=== PATIENT | female | born 1990 | race Hispanic/Latino ===

== ENCOUNTER 2018-09-11 21:34 | Emergency (ER) | payer BC ==
[2018-09-11] MEDS ORDERED: Sodium Chloride 0.9% 1,000 ML IV STA (23:31)
--- NOTE | 2018-09-11 23:35 | ED PDOC ---
HPI: General Adult Time Seen by Provider: 09/11/18 23:18 Chief Complaint (Nursing): GI Problem Chief Complaint (Provider): throat pain History Per: Patient History/Exam Limitations: no limitations Onset/Duration Of Symptoms: Days (2) Current Symptoms Are (Timing): Still Present Additional Complaint(s): 27 y/o female presents for evaluation of throat pain x 2 days. Associated right-sided neck pain/swelling, worsened today. Patient also reports 3-4 episodes of vomiting and diarrhea today. Had URI symptoms all last week. Denies fever, headache, dizziness, congestion, cough, shortness of breath, difficulty swallowing, chest pain, palpitations, abdominal pain,urinary symptoms, recent travel, sick contacts. Patient was evaluated by her primary doctor today and given antibiotics but she did not start them yet. Past Medical History Reviewed: Historical Data, Nursing Documentation, Vital Signs Vital Signs: Last Vital Signs Temp 97.6 F 09/11/18 22:05 Pulse 76 09/11/18 22:05 Resp 18 09/11/18 22:05 BP 119/81 09/11/18 22:05 Pulse Ox 100 09/11/18 22:05 - Medical History PMH: No Chronic Diseases - Surgical History Surgical History: Tonsillectomy Other surgeries: glaucoma - Family History Family History: States: No Known Family Hx - Living Arrangements Living Arrangements: With Family - Home Medications Home Medications: Ambulatory Orders Medication Instructions Recorded Ibuprofen [Motrin Tab] 1 tab PO Q6 PRN #20 tab 09/12/18 Ondansetron ODT [Zofran ODT] 4 mg PO Q8 PRN #10 odt 09/12/18 - Allergies Allergies/Adverse Reactions: Allergies Allergy/AdvReac Type Severity Reaction Status Date / Time No Known Allergies Allergy Verified 09/11/18 22:05 Review of Systems ROS Statement: Except As Marked, All Systems Reviewed And Found Negative ENT: Positive for: Throat Pain Gastrointestinal: Positive for: Nausea, Vomiting, Diarrhea Physical Exam - Reviewed Nursing Documentation Reviewed: Yes Vital Signs Reviewed: Yes - Physical Exam Appears: Positive for: Well, Non-toxic, No Acute Distress Head Exam: Positive for: ATRAUMATIC, NORMAL INSPECTION, NORMOCEPHALIC Skin: Positive for: Normal Color Eye Exam: Positive for: Normal appearance ENT: Positive for: TM Is/Are (clear b/l), Pharyngeal Erythema. Negative for: Tonsillar Exudate (surgically absent), Tonsillar Swelling (surgically absent) Neck: Positive for: Normal, Painless ROM Cardiovascular/Chest: Positive for: Regular Rate, Rhythm Respiratory: Positive for: Normal Breath Sounds Gastrointestinal/Abdominal: Positive for: Normal Exam Back: Positive for: Normal Inspection Extremity: Positive for: Normal ROM Lymphatic: Positive for: Adenopathy (right subtonsillar adenopathy; tender to touch. No redness, fluctuance, skin warmth noted) Neurological/Psych: Positive for: Awake, Alert, Oriented (3) - Laboratory Results Result Diagrams: 09/11/18 23:45 09/11/18 23:45 - ECG O2 Sat by Pulse Oximetry: 100 - Progress ED Course And Treament: -upreg -udip -cbc -cmp -lipase -rapid strep -mono -IV NS bolus -IV toradol -IV zofran On re-eval, patient states she is feeling much better. Tolerated PO. Vitals stable Patient educated on findings, discharged with rx Zofran, ibuprofen Advised symptomatic treatment; rest, increase fluid intake Follow up with PMD within 2-3 days Return precautions given Disposition - Clinical Impression Clinical Impression: Infectious mononucleosis Counseled Patient/Family Regarding: Studies Performed, Diagnosis, Need For Fol lowup, Rx Given - Disposition Disposition: Routine/Home Disposition Time: 01:57 Condition: IMPROVED Prescriptions: Ibuprofen [Motrin Tab] 1 tab PO Q6 PRN #20 tab PRN Reason: Pain, Moderate (4-7) Ondansetron ODT [Zofran ODT] 4 mg PO Q8 PRN #10 odt PRN Reason: Nausea/Vomiting Instructions: Mononucleosis Forms: [employer] ED School/Work Excuse
[2018-09-12 00:18] LABS: BASO % 0.2 % (0.0-2.0); EOS # 0.2 K/uL (0.0-0.7); EOS % 2.1 % (0.0-4.0); HEMOGLOBIN 13.8 g/dL (12.0-16.0); LYMPH # 2.1 K/uL (1.0-4.3); LYMPH % 26.4 % (20.0-40.0); MEAN CELL VOLUME 89.9 fl (81.0-99.0); MEAN CORPUSCULAR HEMOGLOBIN 30.4 pg (27.0-31.0); MEAN CORPUSCULAR HGB CONC 33.8 g/dL (33.0-37.0); MEAN PLATELET VOLUME 7.4 fl (7.2-11.7); MONO # 0.7 K/uL (0.0-0.8); MONO % 9.1 % (0.0-10.0); NEUT # 4.8 K/uL (1.8-7.0); NEUT % 62.2 % (50.0-75.0); RBC 4.55 Mil/uL (3.80-5.20); RED CELL DISTRIBUTION WIDTH 12.7 % (11.5-14.5); WHITE BLOOD COUNT 7.8 K/uL (4.8-10.8)
[2018-09-12 00:21] LABS: SQUAMOUS EPITHIAL < 1 /hpf (0-5); URINE BILIRUBIN NEGATIVE (NEGATIVE); URINE BLOOD NEGATIVE (NEGATIVE); URINE CLARITY CLEAR (Clear); URINE COLOR YELLOW (YELLOW); URINE GLUCOSE (UA) NEG (NEGATIVE); URINE LEUKOCYTE ESTERASE NEG Leu/uL (Negative); URINE PROTEIN NEGATIVE (NEGATIVE); URINE UROBILINOGEN 0.2-1.0 mg/dL (0.2-1.0)
[2018-09-12 00:47] LABS: ALB/GLOB RATIO 1.2 (1.0-2.1); ALBUMIN 4.4 g/dL (3.5-5.0); ALT/SGPT 49 U/L (9-52); AST/SGOT 34 U/L (14-36); BLOOD UREA NITROGEN 17 mg/dl (7-17); CALCIUM 9.4 mg/dL (8.4-10.2); GFR NON-AFRICAN AMERICAN > 60; LIPASE 168 U/L (23-300)
[2018-09-12 01:50] VITALS: BP 123/71; PULSE 68; RESP 16; TEMP 98.5
[2018-09-12 01:57] VITALS: O2SAT 100
== END 2018-09-12 01:57 | disposition home or self-care (01) ==
LOC: H.ER 21:34
DX: B27.90 Infectious mononucleosis, unspecified without complication (principal)
CPT/HCPCS: 80053; 81003; 81025; 83690; 85025; 86308; 87070; 87430; 96374; 99284; J1885; J2405; J7030